=== PATIENT | female | born 1945 | race Caucasian/White ===

== ENCOUNTER 2022-09-12 11:39 | Day surgery (SDC) | payer MEDICARE, OTHER ==
[2022-09-12] VITALS (10 sets, daily range): BP systolic 131–191; BP diastolic 73–96; PULSE 81–98; TEMP 98.6
[~2022-09-12] VITALS: Ht 160.1 cm; Wt 86.5 kg
[~2022-09-12 11:39] MED LIST: ASPIRIN 81M81 MG/TA2 PO; ASPIRIN E.C. 8181 MG PO; CARTIA XT240 MG PO; CENTRUM SILVER1 CTB; CRESTOR5 MG PO; FLOXIN 10 ML10 ML OT; GLUCOPHAGE1000 MG PO; HYZAAR 25 MG-101 TAB PO; LASIX 20MG TABL20 MG PO; NASONEX SPRAY17 GM NS; NORCO 325 MG-7.1 TAB PO; OMEGA-3 FISH1200 MG PO; SINGULAIR 110 MG/TAB PO; SYNTHROID0.125 MG/T PO; TRESIBA FL200 UNIT/1; TRESIBA FL200 UNIT/1 SQ; VICTOZA6 MG/ML SC
[2022-09-12 12:27] LABS: HEMATOCRIT 38.3 % (37.0-47.0); MEAN CELL VOLUME 77 fl (80.0-100.0); MEAN CORPUSCULAR HEMOGLOBIN 24 pg (27-31); MEAN CORPUSCULAR HGB CONC 31 g/dl (33.0-37.0); MEAN PLATELET VOLUME 9.6 fl (7.4-10.4); PLATELET COUNT 283 K/mm3 (130-400); RED BLOOD COUNT 4.98 M/mm3 (4.10-5.30); REDCELL DISTRIBUTION WIDTH-CV 19.2 % (11.5-14.5)
[2022-09-12 12:33] LABS: INR 1.3 (0.8-3.0); PROTHROMBIN TIME 14.4 SECONDS (9.7-12.8)
[2022-09-12 12:35] LABS: PARTIAL THROMBOPLASTIN TIME 33.7 SECONDS (26.0-37.0)
[2022-09-12 12:52] LABS: CALCIUM 9.3 mg/dL (8.4-10.2); CREATININE, serum 1.08 mg/dL (0.57-1.11); POTASSIUM 4.3 mmol/L (3.5-4.5)
[2022-09-12] MEDS ORDERED: LIPITOR 40MG TA40 MG PO (13:09)
[2022-09-12] MEDS ORDERED: COREG12.5 MG PO (13:09)
[2022-09-12] MEDS ORDERED: CALCIUM 600MG+D1 TAB (13:11)
[2022-09-12] MEDS ORDERED: PROTONIX 40MG T40 MG PO (13:11)
[2022-09-12] MEDS ORDERED: ZYRTEC 10MG10 MG PO (13:12)
[2022-09-12] MEDS ORDERED: NATURAL IRON65 MG PO (13:24)
--- NOTE | 2022-09-12 14:12 | NUR ---
SEE MERGE FOR ALL MEDICATIONS, VITALS AND INTERVENTIONS.
--- NOTE | 2022-09-12 15:00 | NUR ---
Oma is transferred back to the express unit after negative heart cath. tele implemented. sr with pvcs. vital sign monitoring in place. TR band to rt wrist, cms intact distal. lunch ordered. at bs. call light in reach. wctm.
[2022-09-12] MEDS ORDERED: NORVASC 5MG5 MG/TAB PO (15:09)
[2022-09-12] MEDS ORDERED: ZEBETA10 MG PO (15:10)
[2022-09-12] MEDS ORDERED: COZAAR100 MG PO (15:11)
[2022-09-12] MEDS ORDERED: FLONASE NASAL S16 GM NS (15:12)
[2022-09-12] MEDS ORDERED: PREDNISONE20 MG PO (15:13)
--- NOTE | 2022-09-12 18:10 | NUR ---
TR band has been deflated with no problem. Site dressed with bandaid, folded 2x2 and coban. I have reviewed dc/fu and rx instructions with pt and her . PT and verbalized understanding. Pt has done well during her recovery. She was able to eat some dinner and rested without any acute complaints. She did have a small amount of oozing from puncture site beneath TR band. The was self limiting, and did not require additional air in band or any other intervention. PT has been up and ambulatory to the bathroom, gait is steady. Pt escorted to exit via wheelchair.
== END 2022-09-12 20:02 | disposition home or self-care (01) ==
LOC: COL.CAR 11:39
PROVIDERS: Internal Medicine Cardiovascular Disease
DX: I42.9 Cardiomyopathy, unspecified (principal)
CPT/HCPCS: C1769; J1200; J1644; J2250; J3010; Q9967

== ENCOUNTER 2023-05-08 10:02 | Day surgery (SDC) | payer MEDICARE ==
[2023-05-08] VITALS (13 sets, daily range): BP systolic 122–170; BP diastolic 60–89; PULSE 57–80; TEMP 97.4–98.5
[~2023-05-08] VITALS: Ht 160 cm; Wt 86.0 kg
[~2023-05-08 10:02] MED LIST changes: +CALCIUM 600MG+D1 TAB; +COREG12.5 MG PO; +COZAAR100 MG PO; +FLONASE NASAL S16 GM NS; +LIPITOR 40MG TA40 MG PO; +NATURAL IRON65 MG PO; +NORVASC 5MG5 MG/TAB PO; +PREDNISONE20 MG PO; +PROTONIX 40MG T40 MG PO; +ZEBETA10 MG PO; +ZYRTEC 10MG10 MG PO
--- NOTE | 2023-05-08 10:54 | NUR ---
Initial visit; Patient thanked [employer]ocker for coming in and introduced Gun Stocker to her . Gun Stocker spoke with patient about her 'Procedure' and her great Physician and offered prayer for a rapid and thorough recovery. Gun Stocker wished them a Happy Thanksgiving.
[2023-05-08 11:01] LABS: BASO % 0.1 % (0.0-2.0); GRAN # 8.2 K/mm3 (1.4-6.5); GRAN % 80.2 % (42.2-75.2); HEMATOCRIT 38.4 % (37.0-47.0); HEMOGLOBIN 12.5 g/dl (12.5-16.0); LYMPH # 1.3 K/mm3 (1.2-3.4); LYMPH % 12.7 % (20.0-51.0); MEAN CELL VOLUME 79 fl (80.0-100.0); MEAN CORPUSCULAR HEMOGLOBIN 26 pg (27-31); MEAN CORPUSCULAR HGB CONC 33 g/dl (33.0-37.0); MEAN PLATELET VOLUME 9.5 fl (7.4-10.4); MONO # 0.7 K/mm3 (0.1-0.6); MONO % 6.8 % (1.7-9.3); PLATELET COUNT 273 K/mm3 (130-400); RED BLOOD COUNT 4.86 M/mm3 (4.10-5.30); REDCELL DISTRIBUTION WIDTH-CV 14.7 % (11.5-14.5)
[2023-05-08 11:13] LABS: INR 1.3 (0.8-3.0); PROTHROMBIN TIME 14.1 SECONDS (9.7-12.8)
[2023-05-08 11:29] LABS: CALCIUM 9.5 mg/dL (8.4-10.2)
--- NOTE | 2023-05-08 12:18 | NUR ---
pt taken to slabbing machine operator for ICD placement at approx 1215. 20G IV placed to right AC and pink limb-alert band placed on left arm due to pt's hysterectomy of left mastectomy in 2006. all pt belongings left with .
--- NOTE | 2023-05-08 12:47 | NUR ---
Refer to [facility] report for procedural sedation/notes.
--- NOTE | 2023-05-08 14:32 | NUR ---
Patient arrived to the medical unit by bed, alert and oriented x4, VSS, some antibiotics finished. Post op started.
--- NOTE | 2023-05-08 15:10 | NUR ---
Pt incition clean dry intact, tissue is firm, ice pack placed.
--- NOTE | 2023-05-08 21:00 | NUR ---
Patient resting in bed. Denies any pain or needs at this time. Assessment complete. IV in right AC flushes easily with no complicaitons. Dressing to right chest appears clean, dry, and intact. Call light and personal items in reach. Bed in low position
[2023-05-09] VITALS (8 sets, daily range): BP systolic 148–172; BP diastolic 71–93; PULSE 64–75; TEMP 97.6–98.1
--- NOTE | 2023-05-09 06:00 | NUR ---
Patient resting in bed. Denies any pain or needs at this time. Call light and personal items in reach. Bed in low position
[2023-05-09 06:29] LABS: BASO % 0.1 % (0.0-2.0); GRAN # 10.6 K/mm3 (1.4-6.5); GRAN % 89.8 % (42.2-75.2); HEMATOCRIT 37.3 % (37.0-47.0); HEMOGLOBIN 12.2 g/dl (12.5-16.0); LYMPH # 0.9 K/mm3 (1.2-3.4); LYMPH % 7.8 % (20.0-51.0); MEAN CELL VOLUME 79 fl (80.0-100.0); MEAN CORPUSCULAR HEMOGLOBIN 26 pg (27-31); MEAN CORPUSCULAR HGB CONC 33 g/dl (33.0-37.0); MEAN PLATELET VOLUME 10.4 fl (7.4-10.4); MONO # 0.2 K/mm3 (0.1-0.6); MONO % 1.9 % (1.7-9.3); PLATELET COUNT 229 K/mm3 (130-400); REDCELL DISTRIBUTION WIDTH-CV 15.2 % (11.5-14.5)
[2023-05-09 06:42] LABS: CALCIUM 9.1 mg/dL (8.4-10.2); CREATININE, serum 0.94 mg/dL (0.57-1.11); POTASSIUM 4.5 mmol/L (3.5-4.5)
--- NOTE | 2023-05-09 09:34 | NUR ---
Patient resting in bed, watching TV, alert and oriented x 4, with HTN. Denies any pain or discomfort. Assessment completed, meds provided. No further needs at this time. Call light within reach.
[2023-05-09] MEDS ORDERED: CLEOCIN HCL300 MG PO (10:12)
--- NOTE | 2023-05-09 10:56 | NUR ---
Follow-up visit; Patient doing well. Her Physician joined Oma and for prayer prior to her discharge from the Hospital. offered a Happy Thanksgiving to all. They did the same.
--- NOTE | 2023-05-09 11:28 | NUR ---
Patient was provided with discharge information, all questions answered. IV access and telemetry were discontinued.
== END 2023-05-09 11:35 | disposition home or self-care (01) ==
LOC: COL.CAR 10:02 → MEDICAL 14:33 → COL.CAR 05-09 11:35
PROVIDERS: Internal Medicine Cardiovascular Disease
DX: I42.0 Dilated cardiomyopathy (principal); I42.8 Other cardiomyopathies; I50.22 Chronic systolic (congestive) heart failure; I11.0 Hypertensive heart disease with heart failure; G47.33 Obstructive sleep apnea (adult) (pediatric); E78.2 Mixed hyperlipidemia; I34.0 Nonrheumatic mitral (valve) insufficiency; J45.909 Unspecified asthma, uncomplicated; R05.3 Chronic cough; Z79.899 Other long term (current) drug therapy; Z79.82 Long term (current) use of aspirin
CPT/HCPCS: OP; C1721; C1777; C1894; C1898; J0665; J0690; J1200; J2250; J2405; J3010; J3370; J7030; J7050; J7512